=== PATIENT | female | born 1945 | race Caucasian/White ===

== ENCOUNTER 2021-09-22 10:05 | Emergency (ER) | payer MEDICARE ==
[~2021-09-22] VITALS: Ht 165.1 cm; Wt 81.8 kg
[2021-09-22] MEDS ORDERED: MOBIC 7.5MG7.5 MG PO (14:19)
[2021-09-22] MEDS ORDERED: NORCO 325 MG-51 TAB PO (14:20)
[2021-09-22 14:45] VITALS: BP 122/52; PULSE 64
== END 2021-09-22 14:45 | disposition home or self-care (01) ==
LOC: COL.ER 10:05
DX: M54.50 Low back pain, unspecified (principal); Z87.891 Personal history of nicotine dependence

== ENCOUNTER 2021-12-14 12:20 | Emergency (ER) | payer MEDICARE ==
[~2021-12-14] VITALS: Ht 167.6 cm; Wt 81.8 kg
[~2021-12-14 12:20] MED LIST: MOBIC 7.5MG7.5 MG PO; NORCO 325 MG-51 TAB PO
[2021-12-14 12:31] VITALS: TEMP 97.9
[2021-12-14 14:11] VITALS: BP 133/51; PULSE 70
== END 2021-12-14 14:11 | disposition home or self-care (01) ==
LOC: COL.ER 12:20
DX: S80.01XA Contusion of right knee, initial encounter (principal); S20.212A Contusion of left front wall of thorax, initial encounter; Z96.651 Presence of right artificial knee joint; W01.198A Fall on same level from slipping, tripping and stumbling with subsequent striking against other object, initial encounter

== ENCOUNTER 2022-06-05 16:15 | Emergency (ER) | payer MEDICARE ==
[~2022-06-05] VITALS: Ht 165.1 cm; Wt 86.6 kg
[2022-06-05 16:19] VITALS: TEMP 98.5
[2022-06-05 17:20] LABS: BASO % 0.4 % (0.0-2.0); EOS # 0.5 K/mm3 (0.0-0.7); EOS % 5.4 % (0.0-4.0); GRAN # 5.7 K/mm3 (1.4-6.5); GRAN % 59.9 % (42.2-75.2); LYMPH # 2.3 K/mm3 (1.2-3.4); LYMPH % 24.8 % (20.0-51.0); MEAN CELL VOLUME 88 fl (80.0-100.0); MEAN CORPUSCULAR HGB CONC 29 g/dl (33.0-37.0); MEAN PLATELET VOLUME 11.3 fl (7.4-10.4); MONO # 0.9 K/mm3 (0.1-0.6); MONO % 9.2 % (1.7-9.3); PLATELET COUNT 291 K/mm3 (130-400); RED BLOOD COUNT 3.42 M/mm3 (4.10-5.30); REDCELL DISTRIBUTION WIDTH-CV 16.7 % (11.5-14.5)
[2022-06-05 17:22] LABS: HEMOGLOBIN 8.8 g/dl (12.5-16.0); MEAN CORPUSCULAR HEMOGLOBIN 26 pg (27-31)
[2022-06-05 17:37] LABS: ALBUMIN 3.3 gm/dL (3.4-4.8); ALKALINE PHOSPHATASE 71 U/L (40-150); ANION GAP 12 mmol/L (7-16); AST,SGOT 15 U/L (5-34); BILIRUBIN,TOTAL 0.2 mg/dL (0.2-1.2); BLOOD UREA NITROGEN 22 mg/dL (10-20); C-REACTIVE PROTEIN 2.67 mg/dL (0.00-0.50); CALCIUM 8.9 mg/dL (8.4-10.2); CARBON DIOXIDE 24 mmol/L (23-31); CHLORIDE 104 mmol/L (98-107); CREATINE KINASE 22 U/L (29-168); GLUCOSE 98 mg/dL (70-99); POTASSIUM 4.4 mmol/L (3.5-4.5); SODIUM 140 mmol/L (136-145); TOTAL PROTEIN 7.3 gm/dL (6.2-8.1)
[2022-06-05 17:47] LABS: ALANINE AMINOTRANSFERASE < 6 U/L (0-55); TROPONIN-I < 0.010 ng/mL (0.00-0.033)
[2022-06-05 18:27] LABS: COLLECTION METHOD CLEAN CATCH
[2022-06-05 18:37] LABS: URINE COLOR Yellow (YELLOW)
[2022-06-05 18:38] LABS: MUCOUS Present (NOT PRESENT); PH 5.5 (5.0-8.5); SQUAMOUS EPITHELIAL None Seen /hpf (0-10); URINE APPEARANCE Clear (CLEAR/HAZY); URINE BACTERIA None Seen /hpf (NONE SEEN); URINE BLOOD Negative (NEGATIVE); URINE GLUCOSE Negative (NEGATIVE); URINE KETONE Negative (NEGATIVE); URINE NITRATE Negative (NEGATIVE); URINE PROTEIN(semi-quant) Negative (NEGATIVE); URINE RBC 0-2 /hpf (0-2); URINE UROBILINOGEN 0.2 E.U/dL (0.2-1.0)
[2022-06-05 19:23] VITALS: BP 160/62; PULSE 65
== END 2022-06-05 19:40 | disposition home or self-care (01) ==
LOC: COL.ER 16:15
PROVIDERS: Emergency Medicine
DX: D64.9 Anemia, unspecified (principal); R11.0 Nausea; R91.8 Other nonspecific abnormal finding of lung field; Z87.891 Personal history of nicotine dependence; Z28.310 Unvaccinated for COVID-19
CPT/HCPCS: J2405; J7030